=== PATIENT | female | born 1950 | race Caucasian/White ===

== ENCOUNTER 2024-04-07 09:08 | Day surgery (SDC) | payer MEDICARE ==
[~2024-04-07 09:08] MED LIST: Brimonidine 0.2% Ophth Soln 5 ML Bottle ONE; Dexamethasone/Neomycin/Polymyxin B Ophth Oint 3.5 GM Tube ONE; Lidocaine 1% 2 ML ONE; Phenyleprhine/Ketorolac 4 ML Vial ONE; Povidone-Iodine 5% Sterile Ophth Soln 30 ML Bottle ONE; Proparacaine 0.5% Ophth Soln 15 ML Bottle ONE
[2024-04-07] MEDS: Tropicamide 1% Ophth Soln 3 ML Bottle EYERT SCH (09:18)
[2024-04-07] MEDS: Phenylephrine 2.5% Ophth Soln 2 ML Bot EYERT SCH (09:18)
[2024-04-07] MEDS: Cyclopentolate 1% Opth Soln 2 ML Bottle EYERT SCH (09:18)
[2024-04-07] MEDS: Moxifloxacin 0.5% Ophth Soln 3 ML Bottle EYERT ONE ×2 (09:39→11:08)
[2024-04-07] MEDS ORDERED: fentaNYL 100 MCG/2 ML SDV ONE (10:52)
[2024-04-07] MEDS ORDERED: Midazolam 1 MG/ML 2 ML SDV ONE (10:52)
[2024-04-07] MEDS: Lidocaine 1% PF 2 ML SDV INFILT ONE (11:09)
[2024-04-07] MEDS: Phenyleprhine/Ketorolac 4 ML Vial IO ONE (11:09)
[2024-04-07] MEDS: Balanced Salt Solution Ophth Irrig 500 ML Bottle IOCULAR ONE (11:09)
[2024-04-07] MEDS: Brimonidine 0.2% Ophth Soln 5 ML Bottle EYERT ONE (11:10)
[2024-04-07] MEDS: Chondroitin Sulfate/Hyaluronate Sodium Ophth Inj 0.5 ML Syringe IOCULAR ONE (11:10)
[2024-04-07] MEDS: Tetracaine HCl/PF 0.5% 4 ML Bottle EYERT ONE (11:11)
[2024-04-07] MEDS: Povidone-Iodine 5% Sterile Ophth Soln 30 ML Bottle EYERT ONE (11:11)
[2024-04-07] MEDS: ceFAZolin 500 MG Vial IV ONE (11:11)
[2024-04-07] MEDS: Dexamethasone/Neomycin/Polymyxin B Ophth Oint 3.5 GM Tube EYERT ONE (11:11)
[2024-04-07 11:32] VITALS: BP 177/96; PULSE 73
[2024-04-07] MEDS: acetaZOLAMIDE 500 MG Cap.ER PO ONE (11:35)
== END 2024-04-07 11:55 | disposition home or self-care (01) ==
LOC: VM.SDS 09:08
PROVIDERS: ATTEND Ophthalmology
DX: H25.813 Combined forms of age-related cataract, bilateral (principal); H43.813 Vitreous degeneration, bilateral; I10 Essential (primary) hypertension; E66.9 Obesity, unspecified; E78.00 Pure hypercholesterolemia, unspecified
CPT/HCPCS: 00142; 99100; A9270-GY; J0690; J1097; J2250; J3010; J3490

== ENCOUNTER 2024-07-07 07:11 | Day surgery (SDC) | payer MEDICARE ==
[~2024-07-07 07:11] MED LIST changes: +Cyclopentolate 1% Opth Soln 2 ML Bottle EYELF SCH; +Moxifloxacin 0.5% Ophth Soln 3 ML Bottle EYELF SCH; +Phenylephrine 2.5% Ophth Soln 2 ML Bot EYELF SCH; +Tropicamide 1% Ophth Soln 3 ML Bottle EYELF SCH; +acetaZOLAMIDE 500 MG Cap.ER PO SCH
[2024-07-07] MEDS: Phenylephrine 2.5% Ophth Soln 2 ML Bot EYELF SCH (07:20)
[2024-07-07] MEDS: Cyclopentolate 1% Opth Soln 2 ML Bottle EYELF SCH (07:20)
[2024-07-07] MEDS: Tropicamide 1% Ophth Soln 3 ML Bottle EYELF SCH (07:20)
[2024-07-07] MEDS ORDERED: Midazolam 1 MG/ML 2 ML SDV ONE (07:31)
[2024-07-07] MEDS ORDERED: fentaNYL 100 MCG/2 ML SDV ONE (07:31)
[2024-07-07] MEDS: Moxifloxacin 0.5% Ophth Soln 3 ML Bottle EYELF SCH (07:40)
[2024-07-07] MEDS ORDERED: ceFAZolin 500 MG Vial ONE (08:15)
[2024-07-07] MEDS: Moxifloxacin 0.5% Ophth Soln 3 ML Bottle EYELF ONE (08:51)
[2024-07-07] MEDS: Phenyleprhine/Ketorolac 4 ML Vial IO ONE (08:51)
[2024-07-07] MEDS: Balanced Salt Solution Ophth Irrig 500 ML Bottle IOCULAR ONE (08:51)
[2024-07-07] MEDS: Chondroitin Sulfate/Hyaluronate Sodium Ophth Inj 0.5 ML Syringe IOCULAR ONE (08:52)
[2024-07-07] MEDS: Lidocaine 1% PF 2 ML SDV INFILT ONE (08:52)
[2024-07-07] MEDS: Povidone-Iodine 5% Sterile Ophth Soln 30 ML Bottle EYELF ONE (08:53)
[2024-07-07] MEDS: Brimonidine 0.2% Ophth Soln 5 ML Bottle EYELF ONE (08:53)
[2024-07-07] MEDS: Dexamethasone/Neomycin/Polymyxin B Ophth Oint 3.5 GM Tube EYELF ONE (08:53)
[2024-07-07] MEDS: Tetracaine HCl/PF 0.5% 4 ML Bottle EYELF ONE (08:54)
[2024-07-07 09:23] VITALS: BP 195/75; PULSE 97
[2024-07-07] MEDS: acetaZOLAMIDE 500 MG Cap.ER PO SCH (09:25)
== END 2024-07-07 09:39 | disposition home or self-care (01) ==
LOC: VM.SDS 07:11
PROVIDERS: ATTEND Ophthalmology
DX: H25.813 Combined forms of age-related cataract, bilateral (principal); H43.813 Vitreous degeneration, bilateral; F32.5 Major depressive disorder, single episode, in full remission; I10 Essential (primary) hypertension; Z79.899 Other long term (current) drug therapy
CPT/HCPCS: 00142; 99100; A9270-GY; J0690; J1097; J2250; J3010; J3490